=== PATIENT | male | born 1975 | race African-American/Black ===

== ENCOUNTER 2017-05-15 22:35 | Emergency (ER) | payer SELFPAY ==
[~2017-05-15] VITALS: Ht 190.5 cm; Wt 127.0 kg
[2017-05-16] MEDS ORDERED: KETOROLAC 30MG/ML VIAL IM ONE (05:00)
[2017-05-16] MEDS ORDERED: ONDANSETRON 4MG ODT PO PRN (05:00)
[2017-05-16 05:30] VITALS: BP 129/70
[2017-05-16] MEDS ORDERED: HYDROCODONE/ACETAMINOPHEN 5/325MG TABLET PO ONE (07:15)
== END 2017-05-16 07:41 | disposition home or self-care (01) ==
LOC: ER 22:35
DX: M70.61 Trochanteric bursitis, right hip (principal)
CPT/HCPCS: 73502; 96372; 99284; J1885; Q0162; Z7610